=== PATIENT | male | born 1950 | race Caucasian/White ===

== ENCOUNTER 2018-09-27 14:07 | Emergency (ER) | payer OTHER, BC ==
[~2018-09-27] VITALS: Ht 180.3 cm; Wt 68.0 kg
[~2018-09-27 14:07] MED LIST: CENTRUM SILVER1 EAC1 PO; FINASTERIDE5 MG PO; LISINOPRIL-HCT1 EAC1 PO; MINIPRIN81 MG PO; OMEPRAZOLE20 M2 PO; RESTORIL15 MG PO; VIAGRA100 MG PO
[2018-09-27 15:28] LABS: ABSOLUTE NEUTROPHILS 8.2 thou/uL (1.4-8.2); BASOPHILS 0.1 % (0.0-2.0); HEMATOCRIT 44.2 % (42.0-52.0); HEMOGLOBIN 15.3 gm/dL (14.0-18.0); MCHC 34.7 g/dL (28.0-37.0); MCV 86.7 fL (80.0-100.0); MONOCYTES 3.2 % (1.0-8.0); PLATELET COUNT 212 thou/uL (150-400); POLYS 90.7 % (36.0-66.0)
[2018-09-27 15:37] LABS: CALCIUM 9.9 mg/dL (8.5-10.1); CREATININE 1.2 mg/dL (0.7-1.3); POTASSIUM 3.4 mmol/L (3.5-5.1)
[2018-09-27 15:44] LABS: ALBUMIN 4.4 g/dL (3.4-5.0); TOTAL BILIRUBIN 0.6 mg/dL (<0.1-1.0); TOTAL PROTEIN 8.2 g/dL (6.4-8.2)
[2018-09-27] MEDS ORDERED: ONDANSETRON HCL4 M2 PO (17:49)
[2018-09-27] MEDS ORDERED: BUTALB-APAP-CA1 EACH PO (17:49)
[2018-09-27 18:00] VITALS: BP 113/74
== END 2018-09-27 18:00 | disposition home or self-care (01) ==
LOC: ER 14:07
PROVIDERS: Physician Assistant
DX: G43.909 Migraine, unspecified, not intractable, without status migrainosus (principal); R11.2 Nausea with vomiting, unspecified; Z90.49 Acquired absence of other specified parts of digestive tract; Z90.89 Acquired absence of other organs